=== PATIENT | female | born 1940 | race Caucasian/White ===

== ENCOUNTER → 2017-01-12 | Outpatient (CLI) | payer OTHER ==
[~2017-01-12] MED LIST: ALEVE220 M1 PO; ASPIR-TRIN325 MG PO; BUMEX1 MG PO; HYDROCODON-ACE1 EAC5 PO; LASIX20 MG PO; LISINOPRIL20 MG PO; MIRALAX119 GM PO; NYQUIL PO; PEPCID AC20 M2 PO; TYLENOL325 M1 PO; XARELTO15 MG PO; ZOFRAN ODT4 MG/UDTAB PO
[2017-01-12 13:53] LABS: URINE APPEARANCE TURBID; URINE BILIRUBIN NEG (NEG); URINE BLOOD 3+ (NEG); URINE COLOR DK YELLOW; URINE GLUCOSE NEG (NEG); URINE KETONE NEG (NEG); URINE LEUKOCYTE ESTERASE 3+ (NEG); URINE NITRATE POS (NEG); URINE PROTEIN 2+ (NEG); URINE SPECIFIC GRAVITY 1.021 (1.003-1.035)
[2017-01-12 13:56] LABS: URBCS1 AUWI INNUM /[HPF] (0-2); URINE BACTERIA AUWI 2+ (NEGATIVE); URINE SQUAMOUS EPITHELIAL CELL OCC /[HPF]; UWBCS1 AUWI INNUM (0-5)
== END | disposition home or self-care (01) ==
LOC: CLAB 13:24
PROVIDERS: Internal Medicine Cardiovascular Disease
DX: R31.9 Hematuria, unspecified (principal)
CPT/HCPCS: 81003

== ENCOUNTER → 2017-03-10 | Outpatient (CLI) | payer OTHER ==
--- NOTE | ~2017-03-10 | CT3 ---
[facility] A Service of [facility] & [facility] RADIOLOGY TEXT RESULTS PATIENT: KOBE ADAMS [facility] UNIT #: [id number] AGE: [address]: Bladimir Yusuf MD SEX: F ORDER DR: [id number] [facility] [address] [place] [address] [place], [place] [address] [id number] O MR#: [id number] #: [id number] NAME: KOBE ADAMS : 1940 SEX: F STUDY DATE/TIME: 03/10/2017 12:26 UNIT: [facility] ROOM: STUDY DESCRIPTION: CT Abd and Pelv WWo Cont Attending Physician: Bladimir Yusuf M.D. Referring Physician: Bladimir Yusuf M.D. Ordering Physician: Bladimir Yusuf M.D. Primary Care Physician: Aron Adame M.D. MEDICAL IMAGING REPORT This report is preliminary unless electronic signature is present EXAM CT abdomen and pelvis without and with contrast. INDICATIONS Gross hematuria for the past year. PROCEDURE Unenhanced CT of the abdomen and pelvis. Postcontrast CT of the abdomen and pelvis with multiphase acquisition through the kidneys and 5-minute delayed imaging through the abdomen and pelvis. This CT exam was performed with one or more of the following radiation dose reduction techniques: automatic exposure control, adjustment of mA and/or kV according to patient size, and iterative reconstruction. COMPARISON None FINDINGS ABDOMEN WITHOUT CONTRAST: Included lung bases predominately clear. Previous cholecystectomy. There is a 1.2-cm calculus in the left renal pelvis. High attenuation of the renal pyramids could be seen in the setting of very tiny calculi or crystalluria. PELVIS WITHOUT CONTRAST: No radiodense bladder calculus. ABDOMEN WITH CONTRAST: The kidneys enhance symmetrically. There is significant thickening of the left renal pelvis with surrounding inflammatory change. No enhancing renal mass. Small cysts in the right kidney, largest measuring up to 1.3 cm. Both kidneys show excretion of contrast. The collecting systems are only beginning to fill at 5 minutes. A small cyst in the left hepatic lobe. The spleen, adrenal glands, and STS. [facility] A Service of [facility] & [facility] RADIOLOGY TEXT RESULTS PATIENT: KOBE ADAMS LOCATION: [facility] : 38 UNIT #: [id number] AGE: [address]: Bladimir Yusuf MD SEX: F ORDER DR: pancreas are unremarkable. Bowel loops are nondilated. PELVIS WITH CONTRAST: Previous hysterectomy. No pelvic mass or fluid. There is a 2.5 cm simple cyst in the left ovary, probably a benign postmenopausal cyst. No aggressive-appearing bone lesion. IMPRESSION 1. 1.2-cm calculus in the left renal pelvis with significant thickening of the left renal pelvis with surrounding inflammatory change. There is no stephanie hydronephrosis or obstructing ureteral calculus. 2. Right renal cysts. 3. Other incidental findings are detailed above. Dictated by... Rachid Valadez M.D. THIS IS AN ELECTRONICALLY VERIFIED REPORT Rachid Valadez M.D. at 03/11/2017 2:01 PM ISABEL/joana TD: 03/10/2017 19:18 JOB #: [id number] MEDICAL IMAGING REPORT Page 1 of 1 COPY
[2017-03-10 20:31] LABS: POC - CREATININE 0.84 mg/dL (0.44-1.03); POC - GFR >60.0 mL/min (>60)
== END | disposition home or self-care (01) ==
LOC: CCAT 09:52
PROVIDERS: Urology
DX: N20.1 Calculus of ureter (principal); N28.1 Cyst of kidney, acquired; Z90.710 Acquired absence of both cervix and uterus
CPT/HCPCS: 74178; 82565; Q9967

== ENCOUNTER 2017-04-13 16:16 | Emergency (ER) | payer OTHER ==
[~2017-04-13] VITALS: Ht 162.6 cm; Wt 90.7 kg
--- NOTE | ~2017-04-13 | CT2 ---
[facility] A Service of [facility] RADIOLOGY TEXT RESULTS PATIENT: KOBE ADAMS LOCATION: [facility] : 39 UNIT #: [id number] AGE: [address]: Dawood Ortiz MD SEX: F ORDER DR: [id number] [facility] [address] [place], [place] [address] [id number] MR#: [id number] Acc #: [id number] NAME: KOBE ADAMS : 1940 SEX: F STUDY DATE/TIME: 04/13/2017 20:27 UNIT: [facility] ROOM: STUDY DESCRIPTION: CT Abd and Pelv W Cont Attending Physician: Dawood Ortiz M.D. Ordering Physician: Dawood Ortiz M.D. Primary Care Physician: Aron Adame M.D. MEDICAL IMAGING REPORT This report is preliminary unless electronic signature is present EXAM CT abdomen and pelvis with contrast 04/13/2017, 20:27 hours. HISTORY 76-year-old woman with right upper quadrant discomfort today, jaundice, elevated liver function tests. COMPARISON CT abdomen 03/10/2017. TECHNIQUE Dynamic helical CT images were obtained from the lung bases through the pubic symphysis with intravenous contrast only. Sagittal and coronal reconstructions were performed. Contrast was Isovue-370 100 mL IV. Total exam DLP 865 mGy-cm. This CT exam was performed with one or more of the following radiation dose reduction techniques: automatic exposure control, adjustment of mA and/or kV according to patient size, and iterative reconstruction. FINDINGS Images through the lung bases demonstrate linear atelectasis or scar in the lingula unchanged. There is no nodule or effusion. The distal esophagus appears normal. Images through the abdomen demonstrate normal-sized liver and spleen. There is a tiny cyst in the superior aspect left lobe of the liver unchanged. There is no intrinsic liver lesion. There is no intra or extrahepatic bile duct dilatation. The pancreas and pancreatic duct are normal. The adrenal glands are normal. The right kidney appears normal with the exception of a cyst in the posterior lower pole which is unchanged. The left kidney demonstrates a stone in the renal pelvis located posteriorly independently measuring 1.4 cm. This was present [facility] A Service of [facility] RADIOLOGY TEXT RESULTS PATIENT: KOBE ADAMS [id number] 38 UNIT #: [id number] AGE: [address]: Dawood Ortiz MD SEX: F ORDER DR: slightly more peripherally in the renal pelvis on the prior study. There is persistent wall thickening of the renal pelvis at the ureterovesical junction. This could be related to a chronic inflammatory change. An epithelial malignancy could have this appearance. It is stable from 03/10/2017. There is, however, some dilatation of the left ureter distal to the UPJ that is increased from the previous exam, although there is no lesions seen in the left ureter. This measures up to 1.3 cm. The bladder appears normal. The stomach and small bowel are unremarkable. There is no colonic wall thickening or distension. The appendix and gallbladder are surgically absent. The bladder is normal. There is a left adnexal cyst which appears to be within the left ovary measuring 2.6 cm, previously 2.1 cm. IMPRESSION 1. There is a tiny cyst in the liver unchanged. There is no intrinsic liver lesion. There is cholecystectomy change with no intra or extrahepatic bile duct dilatation. The pancreas and pancreatic duct remain normal. 2. There is a persistently abnormal appearance to the left kidney with moderate pelvocaliectasis. There is a 1.4 cm stone in the renal pelvis with wall thickening at the ureteropelvic junction and some stranding around ureteral pelvic junction similar to that seen on 03/10/2017. This wall thickening could be due to chronic inflammation. However, an epithelial malignancy could have this appearance. The ureter tapers to a normal diameter just distal to the UPJ, but then dilates again to a 1.3 cm. This mid to distal ureteral dilatation is new from the prior exam. No distal ureteral stone is seen. 3. Stable cyst in the posterior lower pole right kidney. 4. The stomach, small bowel and colon are unchanged. There is no evidence of mass. 5. No acute bone lesions are seen. Stable degenerative changes in the spine. Dictated by... Zulma Li M.D. THIS IS AN ELECTRONICALLY VERIFIED REPORT Zulma Li M.D. at 04/14/2017 2:35 PM SMM/josee TD: 04/14/2017 10:50 JOB #: [id number] MEDICAL IMAGING REPORT [facility] A Service of [facility] RADIOLOGY TEXT RESULTS PATIENT: KOBE ADAMS [id number] : 38 UNIT #: [id number] AGE: [address]: Dawood Ortiz MD SEX: F ORDER DR: Page 1 of 1 COPY
[2017-04-13 17:47] LABS: BASOPHIL% 0.7 % (0-2.5); EOSINOPHIL# 0.1 X10e3 (0-0.7); EOSINOPHIL% 2.1 % (0.0-7.0); HEMATOCRIT 39.2 % (35.0-45.0); HEMOGLOBIN 13.3 gm/dL (12.0-16.0); LYMPHOCYTE# 1.1 X10e3 (1.0-3.5); LYMPHOCYTE% 16.3 % (17.0-45.0); MEAN CELL VOLUME 91.4 FL (83-96); MEAN CORPUSCULAR HGB CONC 33.9 g/dL (30-36); MEAN PLATELET VOLUME 8.3 FL (6.5-11.5); MONOCYTE# 0.7 X10e3 (0-1.0); MONOCYTE% 10.1 % (3.0-12.0); NEUTROPHIL# 4.7 X10e3 (1.5-7.1); NEUTROPHIL% 70.8 % (40-75); PLATELET COUNT 302 X10e3 (140-420); RED BLOOD COUNT 4.28 X10e (3.90-5.30); WHITE BLOOD COUNT 6.6 X10e3 (4.0-10.5)
[2017-04-13 17:54] LABS: DIFF IND NO
[2017-04-13 18:00] LABS: ALBUMIN SERUM 3.4 g/dL (3.5-5.0); BILIRUBIN, DIRECT 1.7 mg/dL (0.0-0.2); BILIRUBIN,INDIRECT 2.4 mg/dL (0.0-0.9); BILIRUBIN,TOTAL 4.1 mg/dL (0.2-2.0); BUN/CREATININE RATIO 16.36; CALCIUM SERUM 8.9 mg/dL (8.4-10.2); CREATININE SERUM 1.1 mg/dL (0.6-1.4); GLOM FILT RATE Estimated 48.4 mL/min (>60); POTASSIUM 3.9 mmol/L (3.5-5.1); PROTEIN TOTAL SERUM 6.6 g/dL (6.0-8.3)
[2017-04-13 18:01] LABS: PARTIAL THROMBOPLASTIN TIME 23.5 SECONDS (23.5-31.3); PROTHROMBIN TIME (PATIENT) 10.6 SECONDS (10.0-11.7)
== END 2017-04-13 22:00 | disposition home or self-care (01) ==
LOC: CED 16:16
PROVIDERS: Emergency Medicine
DX: R79.89 Other specified abnormal findings of blood chemistry (principal); E80.6 Other disorders of bilirubin metabolism; I10 Essential (primary) hypertension; Z90.49 Acquired absence of other specified parts of digestive tract; Z90.710 Acquired absence of both cervix and uterus; Z98.51 Tubal ligation status
CPT/HCPCS: 74177; 80048; 80076; 85025; 85610; 85730; 96360; 96361; 99284; Q9967